=== PATIENT | male | born 1995 | race African-American/Black ===

== ENCOUNTER 2018-03-20 17:20 | Emergency (ER) | payer MEDICAID ==
[~2018-03-20] VITALS: Ht 172.7 cm; Wt 172.2 kg
[2018-03-21 00:53] LABS: CLARITY URINE CLEAR (CLEAR); COLOR URINE YELLOW (YELLOW); KETONES URINE 2+ (NEGATIVE); LEUKOCYTE ESTERASE URINE NEGATIVE (NEGATIVE); NITRITE URINE NEGATIVE (NEGATIVE); OCCULT BLOOD URINE NEGATIVE (NEGATIVE); PH URINE 5.5 (4.5-8.0); PROTEIN URINE NEGATIVE (NEGATIVE); SPECIFIC GRAVITY URINE 1.013 (1.005-1.030); UROBILINOGEN URINE 0.2 E.U./dL (0.2-1.0)
[2018-03-21 01:06] LABS: *AMPHETAMINES SCREEN URINE NEGATIVE (NEGATIVE); *BARBITURATES SCREEN URINE NEGATIVE (NEGATIVE); *COCAINE SCREEN URINE NEGATIVE (NEGATIVE); CANNABINOID URINE SCREEN NEGATIVE (NEGATIVE); METHADONE URINE SCREEN NEGATIVE (NEGATIVE); PHENCYCLIDINE URINE SCREEN NEGATIVE (NEGATIVE)
[2018-03-21 01:07] LABS: *BENZODIAZEPINES SCREEN URINE NEGATIVE (NEGATIVE); OPIATES URINE SCREEN NEGATIVE (NEGATIVE)
[2018-03-21 01:13] LABS: CHLORIDE 104 mEq/L (98-107)
[2018-03-21 01:38] VITALS: BP 145/88
== END 2018-03-21 01:40 | disposition home or self-care (01) ==
LOC: ER 17:20
DX: R20.2 Paresthesia of skin (principal); E66.9 Obesity, unspecified; Z68.43 Body mass index [BMI] 50.0-59.9, adult
CPT/HCPCS: 36415; 80048; 80305; 82962; 99283

== ENCOUNTER 2023-12-28 07:30 | Emergency (ER) | payer MEDICAID ==
[~2023-12-28] VITALS: Ht 177.8 cm; Wt 91.0 kg
[2023-12-28 07:33] VITALS: TEMP 98.7; O2SAT 99
[2023-12-28 10:21] VITALS: BP 142/78; PULSE 87; RESP 19; O2SAT 99
== END 2023-12-28 10:22 | disposition home or self-care (01) ==
LOC: ER 07:39
DX: F10.129 Alcohol abuse with intoxication, unspecified (principal); Y90.9 Presence of alcohol in blood, level not specified
CPT/HCPCS: 99283